=== PATIENT | female | born 1995 | race Caucasian/White ===

== ENCOUNTER 2018-04-01 00:29 | Emergency (ER) | payer OTHER, SELFPAY ==
[2018-04-01 01:29] LABS: Absolute Lymphocytes (CBC) 2.9 K/uL (0.7-4.9); Absolute Monocytes 1.5 K/uL (0.1-1.3); Absolute Neutrophil 10.7 K/uL (1.8-8.0); Basophils % 0.3 % (0-1.3); Eosinophils % 0.8 % (0-4.4); Hematocrit 45.1 % (36.0-45.0); Lymphocytes % 19.1 % (15.3-44.8); MPV 11.6 fL (7.6-11.3); Monocytes % 9.9 % (3.3-12.3)
[2018-04-01] MEDS ORDERED: KETOROLAC 30 MG/ML INJ ONE (01:41)
[2018-04-01] MEDS ORDERED: ONDANSETRON 4 MG/2 ML VIAL ONE (01:42)
[2018-04-01] MEDS ORDERED: NA CHLORIDE 0.9% 1,000 ML ONE (01:42)
[2018-04-01 01:45] LABS: Potassium 4.1 mmol/L (3.5-5.1)
[2018-04-01 01:46] LABS: Urine Blood TRACE (NEG); Urine Glucose NEGATIVE (NEG); Urine Protein NEGATIVE (NEG)
[2018-04-01 03:44] LABS: Absolute Lymphocytes (CBC) 1.2 K/uL (0.7-4.9); Absolute Monocytes 1.3 K/uL (0.1-1.3); Basophils % 1.2 % (0-1.3); Eosinophils % 0.6 % (0-4.4); Hematocrit 41.5 % (36.0-45.0); Lymphocytes % 8.9 % (15.3-44.8); MPV 12.8 fL (7.6-11.3); Monocytes % 9.7 % (3.3-12.3); RBC Red Blood Cell Count 4.74 M/uL (3.86-4.86)
--- NOTE | 2018-04-01 04:05 | ER ---
Nurse's Notes [facility] Name: Karen Cummins Age: 22 yrs Sex: Female : 1995 Arrival Date: 04/01/2018 Time: 00:32 Bed 15 Private MD: None, None Diagnosis: Acute low back pain Presentation: 04/01 00:42 Presenting complaint: Patient states: that she is having mid back pain that is causing fc her to have nausea. Denies any urinary problems. Also states that the pain is so bad that she cannot catch her breathe. Transition of care: patient was not received from another setting of care. Onset of symptoms was March 31, 2018. Risk Assessment: Do you want to hurt yourself or someone else? Patient reports no desire to harm self or others. Initial Sepsis Screen: Does the patient meet any 2 criteria? No. Patient's initial sepsis screen is negative. Does the patient have a suspected source of infection? No. Patient's initial sepsis screen is negative. Care prior to arrival: None. 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 - Social history:: Smoking status: Patient/guardian denies using tobacco, Patient uses alcohol, occasionally. Patient/guardian denies using street drugs. - Ebola Screening: : Patient negative for fever greater than or equal to 101.5 degrees Fahrenheit, and additional compatible Ebola Virus Disease symptoms Patient denies exposure to infectious person Patient denies travel to an Ebola-affected area in the 21 days before illness onset. Screenin:46 Abuse screen: Denies threats or abuse. Nutritional screening: No deficits noted. fc Tuberculosis screening: No symptoms or risk factors identified. Fall Risk None identified. Assessment: 01:00 General: Appears in no apparent distress. uncomfortable, Behavior is calm, cooperative, jb4 appropriate for age. Pain: Complains of pain in low back area Pain radiates to mid back area Pain currently is 8 out of 10 on a pain scale. Quality of pain is described as shooting, stabbing, Pain began 4 hours ago. Neuro: Level of Consciousness is awake, alert, obeys commands, Oriented to person, place, time, situation. Cardiovascular: Patient's skin is warm and dry. Respiratory: Airway is patent Respiratory effort is even, unlabored, Respiratory pattern is regular, symmetrical. GI: Reports nausea. : No signs and/or symptoms were reported regarding the genitourinary system. EENT: No signs and/or symptoms were reported regarding the EENT system. Derm: Skin is intact, Skin is pink, warm \T\ dry. Musculoskeletal: Circulation, motion, and sensation intact. Reports pain in low back area. 01:59 Reassessment: Patient appears in no apparent distress at this time. Patient and/or jb4 family updated on plan of care and expected duration. Pain level reassessed. Patient is alert, oriented x 3, equal unlabored respirations, skin warm/dry/pink. Patient states feeling better. 03:10 Reassessment: Patient appears in no apparent distress at this time. Patient and/or rr5 family updated on plan of care and expected duration. Pain level reassessed. no complaints made blood recollection Patient states feeling better. Patient states symptoms have improved. 04:12 Reassessment: Patient appears in no apparent distress at this time. Patient and/or rr5 family updated on plan of care and expected duration. Pain level reassessed. discharge instruction given and explained with no complaints made. Patient states feeling better. Patient states symptoms have improved. Vital Signs: 00:46 Weight 66.22 kg (R); Height 5 ft. 3 in. (160.02 cm) (R); Pain 8/10; fc 00:51 BP 103 / 80; Pulse 76; Resp 16; Temp 98.4(O); Pulse Ox 98% on R/A; jb4 01:50 BP 121 / 76; Pulse 95; Resp 16; Pulse Ox 97% ; jb4 02:54 BP 113 / 78; Pulse 97; Resp 16; Pulse Ox 98% on R/A; jb4 04:00 BP 125 / 70; Pulse 82; Resp 16; Pulse Ox 99% ; rr5 00:46 Body Mass Index 25.86 (66.22 kg, 160.02 cm) ED Course: 00:32 Patient arrived in ED. es 00:32 None, None is Private Physician. es 00:38 Theron Branch MD is Attending Physician. pkl 00:44 Triage completed. fc 00:46 Arm band placed on Patient placed in an exam room, on a stretcher. fc 00:46 Patient has correct armband on for positive identification. Bed in low position. Call fc light in reach. 00:46 No provider procedures requiring assistance completed. fc 00:51 Jeancarlos Mcnulty, RN is Primary Nurse. jb4 01:12 Initial lab(s) drawn, by me, sent to lab. gm 01:14 Inserted saline lock: 22 gauge in left antecubital area, using aseptic technique. Blood gm collected. 02:03 Lumbar Spine (3 Views) XRAY In Process Unspecified. EDMS 03:46 CBC with Diff Sent. rr5 04:13 IV discontinued, intact, bleeding controlled, No redness/swelling at site. Pressure rr5 dressing applied. Administered Medications: 01:25 Drug: NS 0.9% 1000 ml Route: IV; Rate: 1000 ml; Site: left antecubital; jb4 03:16 Follow up: Response: No adverse reaction; IV Status: Completed infusion; IV Intake: rr5 1000ml 01:25 Drug: Zofran 4 mg Route: IVP; Site: left antecubital; jb4 02:51 Follow up: Response: No adverse reaction; Nausea is decreased jb4 01:27 Drug: TORadol 30 mg Route: IVP; Site: left antecubital; jb4 02:51 Follow up: Response: No adverse reaction; Pain is decreased jb4 04:11 Drug: UltRAM 50 mg Route: PO; rr5 04:14 Follow up: Response: Medication administered at discharge. rr5 Intake: 03:16 IV: 1000ml; Total: 1000ml. rr5 Outcome: 04:05 Discharge ordered by . pkl 04:13 Discharged to home ambulatory, with family. rr5 04:13 Condition: stable 04:13 Discharge instructions given to patient, family, Instructed on discharge instructions, follow up and referral plans. medication usage, Demonstrated understanding of instructions, follow-up care, medications, Prescriptions given X 1. 04:14 Patient left the ED. rr5 Signatures: Dispatcher [employer] EDMN Theron Branch MD MD pkKaelyn Conrad Felicia, RN RN fc Jeancarlos Mcnulty RN RN jb4 Sotero Damon RN RN rr5 Josey Guzman gm
--- NOTE | 2018-04-01 04:06 | EDPHYS ---
Physician Documentation [facility] Name: Karen Cummins Age: 22 yrs Sex: Female : 1995 Arrival Date: 04/01/2018 Time: 00:32 Bed 15 Private MD: None, None ED Physician Theron Branch HPI: 04/01 01:16 This 22 yrs old Female presents to ER via Ambulatory with complaints of Low pkl Back Pain. 01:16 The patient presents with pain that is acute. The symptoms are located in the low back. pkl The pain does not radiate. Onset: The symptoms/episode began/occurred today. Associated signs and symptoms: Pertinent positives: nausea. 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 - Social history:: Smoking status: Patient/guardian denies using tobacco, Patient uses alcohol, occasionally. Patient/guardian denies using street drugs. - Ebola Screening: : Patient negative for fever greater than or equal to 101.5 degrees Fahrenheit, and additional compatible Ebola Virus Disease symptoms Patient denies exposure to infectious person Patient denies travel to an Ebola-affected area in the 21 days before illness onset. ROS: 01:16 Eyes: Negative for injury, pain, redness, and discharge, ENT: Negative for injury, pkl pain, and discharge, Neck: Negative for injury, pain, and swelling, Cardiovascular: Negative for chest pain, palpitations, and edema, Respiratory: Negative for shortness of breath, cough, wheezing, and pleuritic chest pain, Abdomen/GI: Negative for abdominal pain, nausea, vomiting, diarrhea, and constipation. 01:16 Back: Positive for pain at rest, of the lower back. 01:16 : Negative for urinary symptoms. 01:16 MS/extremity: Negative for acute changes. 01:16 Skin: Negative for rash. 01:16 Neuro: Negative for altered mental status. Exam: 01:16 Head/Face: Normocephalic, atraumatic. Eyes: Pupils equal round and reactive to light, pkl extra-ocular motions intact. Lids and lashes normal. Conjunctiva and sclera are non-icteric and not injected. Cornea within normal limits. Periorbital areas with no swelling, redness, or edema. ENT: Nares patent. No nasal discharge, no septal abnormalities noted. Tympanic membranes are normal and external auditory canals are clear. Oropharynx with no redness, swelling, or masses, exudates, or evidence of obstruction, uvula midline. Mucous membranes moist. Neck: Trachea midline, no thyromegaly or masses palpated, and no cervical lymphadenopathy. Supple, full range of motion without nuchal rigidity, or vertebral point tenderness. No Meningismus. Chest/axilla: Normal chest wall appearance and motion. Nontender with no deformity. No lesions are appreciated. Cardiovascular: Regular rate and rhythm with a normal S1 and S2. No gallops, murmurs, or rubs. Normal PMI, no JVD. No pulse deficits. Respiratory: Lungs have equal breath sounds bilaterally, clear to auscultation and percussion. No rales, rhonchi or wheezes noted. No increased work of breathing, no retractions or nasal flaring. Abdomen/GI: Soft, non-tender, with normal bowel sounds. No distension or tympany. No guarding or rebound. No evidence of tenderness throughout. 01:16 Back: pain, that is moderate, of the lower back, Straight leg raises: of both lower extremities does not illicit pain. 01:16 : Exam negative for acute changes. 01:16 Musculoskeletal/extremity: Exam is negative for acute changes. 01:16 Skin: Exam negative for rash. 01:16 Neuro: Orientation: is normal, Mentation: is normal, Cranial nerves: grossly normal, Motor: is normal. Vital Signs: 00:46 Weight 66.22 kg (R); Height 5 ft. 3 in. (160.02 cm) (R); Pain 8/10; fc 00:51 BP 103 / 80; Pulse 76; Resp 16; Temp 98.4(O); Pulse Ox 98% on R/A; jb4 01:50 BP 121 / 76; Pulse 95; Resp 16; Pulse Ox 97% ; jb4 02:54 BP 113 / 78; Pulse 97; Resp 16; Pulse Ox 98% on R/A; jb4 04:00 BP 125 / 70; Pulse 82; Resp 16; Pulse Ox 99% ; rr5 00:46 Body Mass Index 25.86 (66.22 kg, 160.02 cm) fc MDM: 00:38 Patient medically screened. pkl 04:04 Data reviewed: vital signs, nurses notes, lab test result(s), radiologic studies, plain pkl films. 04/01 01:17 Order name: Urine Dipstick--Ancillary (enter results); Complete Time: 02:08 em1 04/01 01:25 Order name: Basic Metabolic Panel; Complete Time: 02:08 EDMS 04/01 01:25 Order name: CBC with Automated Diff; Complete Time: 02:08 EDMS 04/01 01:29 Order name: Lumbar Spine (3 Views) XRAY pkl 04/01 01:50 Order name: Urine --Ancillary (enter results) em1 04/01 01:50 Order name: Urine --Ancillary; Complete Time: 02:27 EDMS 04/01 02:33 Order name: CBC with Diff; Complete Time: 04:01 pkl Administered Medications: 01:25 Drug: NS 0.9% 1000 ml Route: IV; Rate: 1000 ml; Site: left antecubital; jb4 03:16 Follow up: Response: No adverse reaction; IV Status: Completed infusion; IV Intake: rr5 1000ml 01:25 Drug: Zofran 4 mg Route: IVP; Site: left antecubital; jb4 02:51 Follow up: Response: No adverse reaction; Nausea is decreased jb4 01:27 Drug: TORadol 30 mg Route: IVP; Site: left antecubital; jb4 02:51 Follow up: Response: No adverse reaction; Pain is decreased jb4 04:11 Drug: UltRAM 50 mg Route: PO; rr5 04:14 Follow up: Response: Medication administered at discharge. rr5 Disposition: 04/01/18 04:05 Discharged to Home. Impression: Acute low back pain. - Condition is Stable. - Prescriptions for Ultracet 37.5- 325 mg Oral Tablet - take 1 tablet by ORAL route every 8 hours - for up to 5 days; do not exceed 8 tablets per day.; 20 tablet. - Medication Reconciliation Form, Thank You Letter, Antibiotic Education, Prescription Opioid Use form. - Follow up: Private Physician; When: 2 - 3 days; Reason: Re-evaluation by your physician. - Problem is new. - Symptoms have improved. Signatures: Dispatcher [employer] EDAZ Theron Branch MD MD pkl Yolette Vega, RN RN Jeancarlos Mcnulty, RN RN jb4 Sotero Damon, RN RN rr5 Corrections: (The following items were deleted from the chart) 01:31 01:25 Test Serum, Qualitat ordered. EDAZ EDMS 01:42 01:39 CBC+H.LAB.BRZ ordered. EDMS EDMS 02:11 01:39 BASIC METABOLIC PANEL+C.LAB.BRZ ordered. EDMS EDMS 02:11 01:39 QUANTITATIVE HCG+C.LAB.BRZ ordered. EDAZ EDMS 04:14 04:05 04/01/2018 04:05 Discharged to Home. Impression: Acute low back pain. Condition rr5 is Stable. Forms are Medication Reconciliation Form, Thank You Letter, Antibiotic Education, Prescription Opioid Use. Follow up: Private Physician; When: 2 - 3 days; Reason: Re-evaluation by your physician. Problem is new. Symptoms have improved. pkl
[2018-04-01] MEDS ORDERED: TRAMADOL HCL 50 MG TAB ONE (04:18)
--- NOTE | 2018-04-01 07:31 | RAD REPORT ---
EXAM DESCRIPTION: RAD - Lumbar Spine 3 Views - 04/01/2018 2:09 am CLINICAL HISTORY: Back pain FINDINGS: The alignment of the lumbar spine is satisfactory. No fracture or dislocation is seen. No significant bone or joint abnormality seen
== END 2018-04-01 04:14 | disposition home or self-care (01) ==
LOC: ER 00:29
DX: M54.5 Low back pain (principal)
CPT/HCPCS: 36415; 72100; 80048; 81003; 81025; 85025; 96361; 96374; 96375; 99284; J2405; J7030